=== PATIENT | female | born 1955 ===

== ENCOUNTER 2017-04-15 10:58 | Emergency (ER) | payer BC ==
[2017-04-15 14:16] VITALS: BP 142/70
--- NOTE | 2017-04-15 14:27 | UC ---
Throat Pain/Nasal Bereket HPI - HPI Summary HPI Summary: 62 y/o female presents to the urgent care c/o sore throat, sinus congestion with green discharge for the past week. Pt report sore throat is getting worse since yesterday. Pain with swallowing is 8/10, fever, body aches, B/L ear pain dry cough and mild REARDON. She took Nyquil PO yesterday to alleviate symptoms. Pt denies SOB, chest pain, abdominal pain, N/V/D - History of Current Complaint Chief Complaint: UCRespiratory Stated Complaint: SORE THROAT Time Seen by Provider: 04/15/17 14:09 Hx Obtained From: Patient Hx Last Menstrual Period: menopausal ?: No Onset/Duration: Gradual Onset, Lasting Days - 2 days, Still Present Severity: Moderate Pain Intensity: 8 Pain Scale Used: 0-10 Numeric Cough: Nonproductive Associated Signs & Symptoms: Positive: Dysphagia, Fever - Epiglottits Risk Factors Epiglottis Risk Factors: Negative - Allergies/Home Medications Allergies/Adverse Reactions: Allergies Allergy/AdvReac Type Severity Reaction Status Date / Time No Known Allergies Allergy Verified 04/15/17 14:15 Home Medications: Home Medications Atorvastatin* [Lipitor 40 MG*] 40 mg PO 1700 04/15/17 [History Confirmed ] Hydrochlorothiazide TAB* [Hydrodiuril TAB*] 12.5 mg PO DAILY 04/15/17 [History Confirmed 04/15/17] Losartan Potassium 100 mg PO DAILY 04/15/17 [History Confirmed 04/15/17] PMH/Surg Hx/FS Hx/Imm Hx Previously Healthy: Yes Endocrine History: Dyslipidemia Cardiovascular History: Hypertension Cancer History: Breast Cancer - Surgical History Surgical History: Yes Surgery Procedure, Year, and Place: 2 c-sections, L lumpectomy - Family History Known Family History: Positive: Hypertension - Social History Occupation: Employed Full-time Lives: With Family Alcohol Use: None Substance Use Type: None Smoking Status (MU): Heavy Every Day Tobacco Smoker Type: Cigarettes Amount Used/How Often: 1/2 ppd Length of Time of Smoking/Using Tobacco: since age 16 Have You Smoked in the Last Year: Yes Review of Systems Constitutional: Fever Skin: Negative Eyes: Negative ENT: Sore Throat, Ear Ache - B/L ear pressure, Nasal Discharge, Sinus Congestion , Sinus Pain/Tenderness Respiratory: Cough - dry Cardiovascular: Negative Gastrointestinal: Negative Genitourinary: Negative Motor: Negative Neurovascular: Negative Musculoskeletal: Negative Neurological: Headache Psychological: Negative Is Patient Immunocompromised?: No All Other Systems Reviewed And Are Negative: Yes Physical Exam Triage Information Reviewed: Yes Vital Signs: Initial Vital Signs Temp 100.4 F 04/15/17 14:10 Pulse 87 04/15/17 14:10 Resp 16 04/15/17 14:10 BP 142/70 04/15/17 14:10 Pulse Ox 95 04/15/17 14:10 - Additional Comments VITAL SIGNS: Reviewed. GENERAL: Patient is a well developed and nourished female who is sitting comfortable in the examining table. Patient is not in any acute respiratory distress. HEAD AND FACE: No signs of trauma. No ecchymosis, hematomas or skull depressions. Maxillary and frontal sinus tenderness on percussion. EYES: PERRLA, EOMI x 2, No injected conjunctiva, no nystagmus. No photophobia. EARS: Hearing grossly intact. Ear canals and tympanic membranes are within normal limits. Nose: edematous, erythemaotus nasal mucosa with yellowish nasal discharge MOUTH: Positive pharynx with erythema, no exudates, no palatal petechiae. NO B/ L tonsillar enlargement . Uvula in midline. NECK: Supple, trachea is midline, Positive anterior cervical lymphadenopathy, no JVD, no carotid bruit, no c-spine tenderness, neck with full ROM. No meningeal signs, no Kernig's or brudzinskis signs. CHEST: Symmetric, no tenderness at palpation LUNGS: Clear to auscultation bilaterally. No wheezing or crackles. CVS: Regular rate and rhythm, S1 and S2 present, no murmurs or gallops appreciated. ABDOMEN: Soft, non-tender. No signs of distention. No rebound no guarding, and no masses palpated. Bowel sounds are normal. EXTREMITIES: FROM in all major joints, no edema, no cyanosis or clubbing. NEURO: Alert and oriented x 3. No acute neurological deficits. SKIN: Dry and warm Throat Pain/Nasal Course/Dx - Course Course Of Treatment: 62 y/o female presents to the urgent care c/o sore throat, sinus congestion with green discharge for the past week. Pt report sore throat is getting worse since yesterday. Pain with swallowing is 8/10, fever, body aches, B/L ear pain dry cough and mild REARDON. She took Nyquil PO yesterday to alleviate symptoms. Pt denies SOB, chest pain, abdominal pain, N/V/D. Hx obtained. Pt with acute bacterial sinusitis. 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 Rapid strep ordered, result : negative.Pt with temp: 100.34 given tylenol PO at the clinice. Pt tolerated well medication. Pt Rx Amoxicillin PO, Ibuprofen PO, flonase to alleviates symptoms of pain and swelling. Advised on hand washing to avoid spreading. Pt advised to rest, eat well and avoid strenuous exercise. If symptoms do not improve or worsen advised to return to the urgent care or f/u with her PCP for further evaluation and treatment. Pt understood and agreed with plan of care. - Differential Dx/Diagnosis Differential Diagnosis/HQI/PQRI: Influenza, Laryngitis, Mononucleosis, Otitis Media, Pharyngitis, Sinusitis, Tonsillitis, URI Provider Diagnoses: 1- Acute bacterial sinusisitis. 2-Pharyngitis. 3- Elevated BP w/o Hx opf HTN Discharge - Discharge Plan Condition: Stable Disposition: HOME Prescriptions: Albuterol HFA INHALER* [Ventolin HFA Inhaler*] 1 - 2 puff INH Q4H PRN #1 mdi PRN Reason: Cough Amoxicillin/Clavulanate TAB* [Augmentin TAB 875*] 875 mg PO BID #20 tab Fluticasone NASAL SPRAY 50MCG* [Flonase NASAL SPRAY 50MCG*] 2 spray BOTH NARES DAILY #1 btl Ibuprofen TAB* [Motrin TAB* 800 MG] 800 mg PO Q6H #20 tab Patient Education Materials: Sinusitis (ED), Low Sodium Diet (ED) Referrals: No Primary Care Phys,NOPCP [Primary Care Provider] - [facility] [place]] - If Needed Additional Instructions: 1- Please increase fluid intake and rest. take full course of antibiotic to avoid resistance 2-Use Flonase as directed to help drain fluid. Also buy saline drops to clear sinuses 3-Take Ibuprofen PO to alleviates fever, pain and swelling 4-Return to the clinic or PCP if symptoms do not improve for further management and treatment 5- Your BP is elevated today, please monitor BP , decrease salt in your diet and if it continues to be elevated f/u with your PCP for further management
[2017-04-15] MEDS ORDERED: Acetaminophen TAB* 325 MG PO ONE (14:29)
== END 2017-04-15 14:51 | disposition home or self-care (01) ==
LOC: UCCORT 10:58
DX: J01.90 Acute sinusitis, unspecified (principal); J02.9 Acute pharyngitis, unspecified; R03.0 Elevated blood-pressure reading, without diagnosis of hypertension; E78.5 Hyperlipidemia, unspecified; Z85.3 Personal history of malignant neoplasm of breast; F17.210 Nicotine dependence, cigarettes, uncomplicated
CPT/HCPCS: 87651; 99212; A9270-GY; G0463

== ENCOUNTER 2017-09-06 16:03 | Emergency (ER) | payer BC ==
[2017-09-06 16:50] VITALS: BP 159/66
--- NOTE | 2017-09-06 17:36 | UC ---
UC General HPI - HPI Summary HPI Summary: PT IS C/O A SEVERAL MONTH HX OF COUGH WITH WHITE SPUTUM. SHE ADMITS TO SOME SOB AND WHEEZING. SHE WAS SEEN BY [facility] X 2. HER BP MED WAS CHANGED FROM LISINOPRIL WITH NO RELIEF PLUS SHE WAS GIVEN AN INHALER WITH NO RELIEF. SHE NOTES THAT HER CHEST IS SORE FROM COUGH. NO FEVER OR HX CRADIAC OR LUNG DISEASE. - History of Current Complaint Hx Obtained From: Patient Hx Last Menstrual Period: menopausal Onset/Duration: Gradual Onset Timing: Constant Pain Intensity: 0 Aggravating: NOTHING Alleviating: NOTHING Associated Signs & Symptoms: Positive: Cough, SOB, Wheezing <Inocencia Kelsey - Last Filed: 09/06/17 17:28> <Deann Ordoñez - Last Filed: 09/06/17 18:38> - History of Current Complaint Chief Complaint: UCGeneralIllness Stated Complaint: COUGH/OSITO Time Seen by Provider: 09/06/17 16:44 - Allergy/Home Medications Allergies/Adverse Reactions: Allergies Allergy/AdvReac Type Severity Reaction Status Date / Time No Known Allergies Allergy Verified 09/06/17 16:50 PMH/Surg Hx/FS Hx/Imm Hx - Additional Past Medical History Additional PMH: STAGE 1 BREAST CA, BENIGN TUMOR R NECK Cardiovascular History: Hypertension - Surgical History Surgical History: Yes Surgery Procedure, Year, and Place: 2 c-sections, L lumpectomy - Family History Known Family History: Positive: Hypertension - Social History Alcohol Use: None Substance Use Type: None Smoking Status (MU): Light Every Day Tobacco Smoker Type: Cigarettes Amount Used/How Often: 1/2 ppd Length of Time of Smoking/Using Tobacco: since age 16 Have You Smoked in the Last Year: Yes Household Exposure Type: Cigarettes - Immunization History Vaccination Up to Date: Yes <Inocencia Kelsey - Last Filed: 09/06/17 17:28> Review of Systems Constitutional: Negative Skin: Negative Eyes: Negative ENT: Negative Respiratory: Shortness Of Breath, Cough Cardiovascular: Negative Gastrointestinal: Negative Genitourinary: Negative Motor: Negative Neurovascular: Negative Musculoskeletal: Negative Neurological: Negative Psychological: Negative Is Patient Immunocompromised?: No All Other Systems Reviewed And Are Negative: Yes <Inocencia Kelsey - Last Filed: 09/06/17 17:28> Physical Exam Triage Information Reviewed: Yes Appearance: Well-Appearing Vital Signs: Initial Vital Signs Temp 98.6 F 09/06/17 16:43 Pulse 85 09/06/17 16:43 Resp 19 09/06/17 16:43 BP 159/66 09/06/17 16:43 Pulse Ox 97 09/06/17 16:43 Vital Signs Reviewed: Yes Eyes: Positive: Conjunctiva Clear ENT: Positive: Pharynx normal, TMs normal. Negative: Nasal congestion, Nasal drainage Neck: Positive: Supple, Nontender, No Lymphadenopathy Respiratory: Positive: Lungs clear, Decreased breath sounds, Other: - bRONCHOSPASTIC-CONGESTED COUGH Cardiovascular: Positive: RRR, No Murmur Abdomen Description: Positive: Nontender, No Organomegaly, Soft Bowel Sounds: Positive: Present Musculoskeletal: Positive: ROM Intact, No Edema Neurological: Positive: Alert Psychological: Positive: Age Appropriate Behavior Skin Exam: Normal <Inocencia Kelsey - Last Filed: 09/06/17 17:28> Vital Signs: Initial Vital Signs Temp 98.6 F 09/06/17 16:43 Pulse 85 09/06/17 16:43 Resp 19 09/06/17 16:43 BP 159/66 09/06/17 16:43 Pulse Ox 97 09/06/17 16:43 <Deann Ordoñez - Last Filed: 09/06/17 18:38> Diagnostics - Radiology No standard instances Radiology Interpretation Completed By: Radiologist - stigmata of copd - EKG Cardiac Rate: NL Cardiac Rhythm: Sinus: Normal Ectopy: None ST Segment: Normal <Inocencia Kelsey - Last Filed: 09/06/17 17:28> Re-Evaluation - Re-Evaluation Second Eval Re-Evaluation Time: 18:04 Change: Improved - aeration has improved <Inocencia Kelsey - Last Filed: 09/06/17 17:28> Course/Dx - Course Course Of Treatment: hx and pe concerning for copd and cxr has copd stigmata. will tx steroid, bronchodilator and antibiotic with close f/u. - Differential Dx - Multi-Symptom Provider Diagnoses: Cough. bronchospasm. probabale copd <Inocencia Kelsey - Last Filed: 09/06/17 17:28> Discharge - Sign-Out/Discharge Documenting (check all that apply): Discharge - Billing Disposition and Condition Condition: IMPROVED Disposition: HOME <Inocencia Kelsey - Last Filed: 09/06/17 17:28> - Billing Disposition and Condition Condition: IMPROVED Disposition: HOME <Deann Ordoñez - Last Filed: 09/06/17 18:38> - Discharge Plan Condition: Improved Disposition: HOME Prescriptions: Albuterol HFA INHALER* [Ventolin HFA Inhaler*] 2 puff INH Q6H #1 mdi DOXYcycline CAP(*) [DOXYcycline 100MG CAP(*)] 100 mg PO BID #20 cap predniSONE TAB* [Deltasone TAB*] 40 mg PO DAILY 4 Days #8 tab Patient Education Materials: COPD (Chronic Obstructive Pulmonary Disease) (ED) , Bronchospasm (ED) Referrals: MARIO Santos [Primary Care Provider] - 5 Days Attestation Statement User Type: Provider - I was available for consult. This patient was seen by the [facility]. The patient was not presented to, seen by, or examined by me. -Monisha <Deann Ordoñez - Last Filed: 09/06/17 18:38>
[2017-09-06] MEDS ORDERED: predniSONE TAB* 20 MG PO ONE (17:37)
[2017-09-06] MEDS ORDERED: Albuterol 2.5 MG/3 ML NEB.SOL* (0.083%) INH ONE (17:37)
--- NOTE | 2017-09-06 17:39 | RAD ---
INDICATION: Productive cough for one month. History of tobacco use. COMPARISON: No relevant prior exams available on the [facility] [place]. TECHNIQUE: Dual energy PA and routine lateral views of the chest were obtained. REPORT: Elevated lung volumes and both diffuse mild prominence of the interstitial markings and minimal patchy rarefaction of the mid to upper lung zone interstitial markings. No focal pulmonary lesion, compelling alveolar consolidation, pleural effusion, pneumothorax. The heart, pulmonary vasculature, and mediastinal contours are unremarkable. Unremarkable soft tissue contours and osseous structures for age. IMPRESSION: Stigmata of obstructive lung disease. No acute pulmonary or cardiac process evident.
== END 2017-09-06 18:20 | disposition home or self-care (01) ==
LOC: UCCORT 16:03
DX: R05 Cough (principal); J98.01 Acute bronchospasm; F17.210 Nicotine dependence, cigarettes, uncomplicated
CPT/HCPCS: 71046; 93005; 99212; G0463; J7512